=== PATIENT | female | born 1990 | race Caucasian/White ===

== ENCOUNTER 2016-10-14 23:57 | Emergency (ER) | payer OTHER ==
[~2016-10-14] VITALS: Ht 170.2 cm; Wt 92.8 kg
[2016-10-15 00:37] LABS: ADD MIUA? NO; BILIRUBIN NEGATIVE; BLOOD NEGATIVE; COLOR YELLOW ((YELLOW)); GLUCOSE (STRIP) NEGATIVE; KETONES NEGATIVE; LEUKOCYTES NEGATIVE; NITRITE NEGATIVE; PROTEIN (STRIP) NEGATIVE; SPECIFIC GRAVITY 1.011 (1.000-1.030); UCUL ADDED? NO; UROBILINOGEN 0.2 MG/DL (0.2-1.0)
[2016-10-15 00:42] LABS: HEMATOCRIT 42.9 % (36.0-46.0); MCH 29.6 PG (29.0-34.0); MCHC 33.3 G/DL (30.0-36.0); MCV 88.8 FL (83-99); MEAN PLAT.VOLUME 9.2 uM^3 (9.5-12.4); PLATELET COUNT 208 K/uL (156-360); RBC DIS.WIDTH-CV 12.3 % (11.8-14.6); RBC DIS.WIDTH-SD 40.4 % (39-53); RED BLOOD COUNT 4.83 M/uL (3.80-5.20); WHITE BLOOD COUNT 5.3 K/uL (4.1-10.2)
[2016-10-15 00:52] LABS: CHLORIDE 106 mEq/L (99-109); POTASSIUM 4.1 mEq/L (3.7-5.4); SODIUM 139 mEq/L (136-147)
[2016-10-15 00:55] LABS: GLUCOSE 97 mg/dL (70-99)
[2016-10-15 00:56] LABS: ANION GAP 11 MEQ/L (2-14)
[2016-10-15 00:57] LABS: TOTAL BILIRUBIN 0.5 mg/dL (0.0-1.0)
[2016-10-15 00:58] LABS: ALKALINE PHOSPHATASE 59 IU/L (3-129)
[2016-10-15 00:59] LABS: GFR ESTIMATE (CALCULATED) > 59 mL/min/; UREA NITROGEN (BUN) 10 mg/dL (9-23)
[2016-10-15 01:08] LABS: QUANTITATIVE HCG < 4.0 MIU/ML
[2016-10-15] MEDS ORDERED: NORCO 5/3251 TABLET PO (04:10)
[2016-10-15] MEDS ORDERED: ZOFRAN8 MG PO (04:10)
[2016-10-15 04:40] VITALS: BP 104/56
== END 2016-10-15 04:45 | disposition home or self-care (01) ==
LOC: EME 23:57
DX: K80.80 Other cholelithiasis without obstruction (principal); R74.0 Nonspecific elevation of levels of transaminase and lactic acid dehydrogenase [LDH]; B19.20 Unspecified viral hepatitis C without hepatic coma; F17.200 Nicotine dependence, unspecified, uncomplicated
CPT/HCPCS: 76705; 80053; 81003; 84702; 85027; 99281; 99284

== ENCOUNTER 2017-02-04 20:00 | Emergency (ER) | payer OTHER ==
[~2017-02-04] VITALS: Ht 167.6 cm; Wt 88.5 kg
[~2017-02-04 20:00] MED LIST: NORCO 5/3251 TABLET PO; ZOFRAN8 MG PO
[2017-02-04 20:27] LABS: HEMATOCRIT 39.9 % (36.0-46.0); MCH 30.8 PG (29.0-34.0); MCHC 34.3 G/DL (30.0-36.0); MCV 89.7 FL (83-99); MEAN PLAT.VOLUME 9.2 uM^3 (9.5-12.4); PLATELET COUNT 214 K/uL (156-360); RBC DIS.WIDTH-CV 12.4 % (11.8-14.6); RBC DIS.WIDTH-SD 40.7 % (39-53); RED BLOOD COUNT 4.45 M/uL (3.80-5.20); WHITE BLOOD COUNT 6.5 K/uL (4.1-10.2)
[2017-02-04 20:39] LABS: ADD MIUA? NO; BILIRUBIN NEGATIVE; BLOOD NEGATIVE; COLOR YELLOW ((YELLOW)); GLUCOSE (STRIP) NEGATIVE; KETONES NEGATIVE; LEUKOCYTES NEGATIVE; NITRITE NEGATIVE; PROTEIN (STRIP) NEGATIVE; SPECIFIC GRAVITY 1.021 (1.000-1.030); UCUL ADDED? NO; UROBILINOGEN 0.2 MG/DL (0.2-1.0)
[2017-02-04 20:40] LABS: CHLORIDE 106 mEq/L (99-109); POTASSIUM 4.2 mEq/L (3.7-5.4); SODIUM 141 mEq/L (136-147)
[2017-02-04 20:43] LABS: GLUCOSE 76 mg/dL (70-99)
[2017-02-04 20:44] LABS: ANION GAP 8 MEQ/L (2-14)
[2017-02-04 20:45] LABS: TOTAL BILIRUBIN 0.4 mg/dL (0.0-1.0)
[2017-02-04 20:46] LABS: ALKALINE PHOSPHATASE 63 IU/L (3-129); GFR ESTIMATE (CALCULATED) > 59 mL/min/
[2017-02-04 20:47] LABS: UREA NITROGEN (BUN) 16 mg/dL (9-23)
[2017-02-04 20:55] LABS: QUANTITATIVE HCG < 4.0 MIU/ML
[2017-02-04] MEDS ORDERED: TRAMADOL HCL50 MG PO (21:57)
[2017-02-04 22:20] VITALS: BP 123/89
[2017-02-05 14:37] LABS: CHLAMYDIA TRACHOMATIS NEGATIVE; NEISSERIA GONORRHOEAE NEGATIVE
== END 2017-02-04 22:20 | disposition home or self-care (01) ==
LOC: EME 20:00
PROVIDERS: Physician Assistant
DX: R10.30 Lower abdominal pain, unspecified (principal); N89.8 Other specified noninflammatory disorders of vagina; F17.200 Nicotine dependence, unspecified, uncomplicated; Z88.8 Allergy status to other drugs, medicaments and biological substances
CPT/HCPCS: 80053; 81003; 84702; 85027; 87210; 87491; 87591; 99281; 99284

== ENCOUNTER 2017-04-20 18:54 | Emergency (ER) | payer OTHER ==
[~2017-04-20] VITALS: Ht 167.6 cm; Wt 89.9 kg
[~2017-04-20 18:54] MED LIST changes: +TRAMADOL HCL50 MG PO
[2017-04-20 20:09] LABS: ADD MIUA? YES; BILIRUBIN NEGATIVE; BLOOD MODERATE; COLOR YELLOW ((YELLOW)); GLUCOSE (STRIP) NEGATIVE; KETONES NEGATIVE; LEUKOCYTES MODERATE; NITRITE POSITIVE; PROTEIN (STRIP) 30; SPECIFIC GRAVITY 1.015 (1.000-1.030); UROBILINOGEN 0.2 MG/DL (0.2-1.0)
[2017-04-20 20:22] LABS: HEMATOCRIT 37.1 % (36.0-46.0); MCH 30.5 PG (29.0-34.0); MCV 89.8 FL (83-99); MEAN PLAT.VOLUME 9.2 uM^3 (9.5-12.4); PLATELET COUNT 173 K/uL (156-360); RBC DIS.WIDTH-CV 12.4 % (11.8-14.6); RBC DIS.WIDTH-SD 40.5 % (39-53); RED BLOOD COUNT 4.13 M/uL (3.80-5.20); WHITE BLOOD COUNT 9.1 K/uL (4.1-10.2)
[2017-04-20 20:27] LABS: BACTERIA 3+ /HPF; EPITHELIAL CELLS 1+ /HPF; MUCUS 1+ /LPF; UCUL ADDED? YES; WHITE BLOOD CELLS 40-50 /HPF (0-5)
[2017-04-20 20:34] LABS: CHLORIDE 106 mEq/L (99-109); POTASSIUM 3.7 mEq/L (3.7-5.4); SODIUM 137 mEq/L (136-147)
[2017-04-20 20:36] LABS: GLUCOSE 101 mg/dL (70-99)
[2017-04-20 20:37] LABS: ANION GAP 8 MEQ/L (2-14)
[2017-04-20 20:38] LABS: TOTAL BILIRUBIN 0.8 mg/dL (0.0-1.0)
[2017-04-20 20:39] LABS: ALKALINE PHOSPHATASE 58 IU/L (3-129)
[2017-04-20 20:40] LABS: GFR ESTIMATE (CALCULATED) > 59 mL/min/
[2017-04-20 20:41] LABS: UREA NITROGEN (BUN) 11 mg/dL (9-23)
[2017-04-20 20:48] LABS: QUANTITATIVE HCG < 4.0 MIU/ML
[2017-04-20 21:17] LABS: INFLUENZA A VIRAL ANTIGEN NEGATIVE; INFLUENZA B VIRAL ANTIGEN NEGATIVE
[2017-04-20] MEDS ORDERED: KEFLEX500 MG PO (22:27)
[2017-04-20 22:35] VITALS: BP 110/88
== END 2017-04-20 22:36 | disposition home or self-care (01) ==
LOC: EME 18:54
DX: N39.0 Urinary tract infection, site not specified (principal); K80.20 Calculus of gallbladder without cholecystitis without obstruction; B19.20 Unspecified viral hepatitis C without hepatic coma; F17.200 Nicotine dependence, unspecified, uncomplicated; Z88.8 Allergy status to other drugs, medicaments and biological substances
CPT/HCPCS: 71020; 74176; 80053; 81003; 84702; 85027; 87077; 87086; 87186; 87502; 99281; 99284; J0696